=== PATIENT | male | born 1940 | race Caucasian/White ===

== ENCOUNTER 2024-05-21 12:41 | Outpatient (CLI) | payer OTHER, MEDICARE ==
[~2024-05-21] VITALS: Ht 162.6 cm; Wt 72.6 kg
[2024-05-21] MEDS: albuterol 2.5 MG/3 ML nebule NEB ONE (13:36)
[2024-05-21 13:38] VITALS: PULSE 67; RESP 15; O2SAT 98
[2024-05-21 13:49] VITALS: PULSE 68; RESP 16
== END 2024-05-21 23:59 | disposition home or self-care (01) ==
LOC: RT 12:41
PROVIDERS: ATTEND Chiropractor
DX: R91.1 Solitary pulmonary nodule (principal)
CPT/HCPCS: 94060; 94760; A4620